=== PATIENT | female | born 1955 | race Asian ===

== ENCOUNTER 2022-09-13 10:36 | Outpatient (CLI) | payer MEDICARE, BC ==
--- NOTE | 2022-09-13 11:39 | SLEEP CARE CONSULTATION ---
Information from patient questionnaire entered by Yuli Ruffin. I have reviewed and concur with the information entered by Yuli Ruffin. This document represents the service I personally performed and the decisions made by me, Sravan Rojas MD, [facility]. History of Present Illness Service Date and Time: 09/13/2022 1036 Reason for Visit: New patient Chief Complaint: reports: Excessive daytime sleepiness, Fatigue, Frequent awakenings at night Date of Onset: YRS Usual bedtime: 11PM Time it takes to fall asleep: 0 MOST NIGHTS Snores at night: No Observed to quit breathing while asleep: No Sleeps alone due to snoring: No Number of times waking at night: 2-3 Reasons for waking at night: reports: Bathroom, Other (UNKNOWN) Toss, Turn, or Twitch while sleeping: Yes Recalls having dreams: No Usually gets out of bed at: 7AM Feels refreshed in the morning: Yes Morning headache: No Sleepy or fatigued during the day: Yes Ever fallen asleep while driving: No Takes day naps: Yes Dreams during day naps: No Prior sleep studies: Yes Year and Where: [facility] Additional HPI information: I had the pleasure of seeing Mrs. Contreras today regarding obstructive sleep ap savanah-hypopnea. As you know, she is a 67-year-old lady who was diagnosed with the sleep-disordered breathing at [facility] in [place] in 2008. The AHI was 109.0 and juan daniel oxygen saturation, 72%. She was prescribed an autobi-level device set at 20/8 cmH2O with pressure support of 4 cmH2O. She uses the ResMed AirCurve 10 every night and all night. The compliance data show usage in 90 out of the past 90 nights, averaging 8.7 hours a night. The residual AHI is 2.9 and average air leak is 5.4 L/minute. She wears a ResMed AirTouch F-20 full face mask. She gets his supplies from [employer] She finds the treatment very beneficial. She also has a new [employer] Respironics BiPAP that was sent to her as the replacement for her old machine. - Parasomnia Symptoms Ever been unable to move upon waking from sleep: No Walks in sleep: No Talks in sleep: Yes Ever acted out dreams in sleep: No Ever felt weak in the knees when startled or emotional: No Bothered by creepy, crawly, restless sensations in legs: No Problems with memory or concentration: No Subjective Initial [place] Sleepiness Scale score: 7 (09/10/22) Past Medical History Past Medical History: reports: Diabetes, Depression, GERD, Attention deficit Social History The patient's occupation is a RE. Patient is and lives in [place]. Have you smoked in the past 12 months: No Alcohol use: No Caffeine use: Yes Caffeine amount and frequency: 1 CUP PER DAY Family History Family history of sleep disordered breathing: No Allergies and Home Medications Known drug allergies: Yes (SULFA) Drug allergies reviewed: Yes Home medication list reviewed: Yes Allergy and home medication list: Allergies Sulfa (Sulfonamide Antibiotics) Allergy (Verified 09/10/22 08:36) Rash Review of Systems Weight loss over past 5 years: 40 Cardiovascular: reports: high blood pressure Respiratory: denies: shortness of breath, wheeze, sputum production, chronic cough, other Gastrointestinal: denies: heartburn, difficulty swallowing, nausea, vomitting, diarrhea, abdominal pain, other Urinary: denies: incontinence, frequency, urgency, impotence, other Neurological: denies: headaches, seizure, head trauma, disorientation, speech dysfunction, gait or balance problems, fainting or unconsciousness, other Psychiatric: reports: depression Ear/Nose/Throat: reports: sinus problems, dry mouth/throat Endocrine: reports: thyroid disease, sluggishness Musculoskeletal: denies: joint pain, neck pain, back pain, joint swelling, muscle pain or cramping, mobility problems, other Immunologic: denies: sneezing, rash, itching, allergies to food or environment, other Physical Exam Vital signs obtained and entered by: YULI Bazan MA Blood Pressure: 126/78 (LEFT ARM) Cuff size: regular Heart Rate: 88 O2 Saturation: 96 Height: 5 ft 3.25 in Weight: 197 lb 9.6 oz Body Mass Index: 34.7 BMI Classification: Obese Neck circumference: 15.25 Mood/affect: Normal HEENT: No craniofacial malformation Nostrils: patent to airflow Turbinates: normal Mouth and throat: narrow oropharynx Soft palate: long Hard palate: normal Uvula: normal Uvula visualization: 50% Mallampati Class II Tongue: normal in size Tonsils: small Chin and jaw: normal size and position Neck: normal w/o lymphadenopathy or thyromegaly Heart: regular rate and rhythm Lungs: clear bilaterally Extremities: no edema or clubbing Neurologic: intact Impression and Plan IMPRESSION: 1. Obstructive Sleep Apnea-Hypopnea Syndrome, extremely severe, as previously diagnosed. She has excellent compliance and improvement on the treatment. The current pressure setting appears effective and comfortable. Her mask fits well. No adjustment is necessary today. Plan: 1. Continue with the autobi-level therapy set at 20/6 cmH2O with pressure support of 4 cmH2O. 2. Prescription made for BiPAP supplies through [employer] 3. Try to lose weight. 4. Return for follow up in a year or earlier if there is any problem. Counseling Topics: Weight control Prescriptions: Device supplies Follow up with Sleep Care in: 1 year Visit Type: In Office Other Participants: Spouse/Significant Other Time Spent with Patient (minutes): 15 Provider Statement: I spent 100% of the Face to Face Visit with the patient with greater than 50% spent counseling the patient and coordination of care.
[2022-09-13 11:43] VITALS: BP 126/78
== END 2022-09-13 10:37 | disposition home or self-care (01) ==
LOC: SC 10:36
PROVIDERS: ATTEND Internal Medicine Pulmonary Disease
DX: G47.33 Obstructive sleep apnea (adult) (pediatric) (principal); E66.9 Obesity, unspecified; Z68.34 Body mass index [BMI] 34.0-34.9, adult
CPT/HCPCS: 99202; G0463; 99212

== ENCOUNTER 2023-09-14 10:59 | Outpatient (CLI) | payer MEDICARE, BC ==
--- NOTE | 2023-09-14 11:33 | Sleep Patient Instructions ---
Sleep Center Visit Summary - Patient Visit Information Reason for Visit: Annual follow-up - Patient Instructions Additional Instructions: You will continue with BiPAP therapy with pressure set at 20/6 cmH2O. A supply prescription will be updated with your DME. We encourage you to continue to try to lose weight. Please follow up with the sleep care office in 1 year. - Clinic Information Contact: [facility] [address] [place] [address] [email or web address] T: [phone]
--- NOTE | 2023-09-14 11:53 | SLEEP CARE CONSULTATION ---
Information from patient questionnaire entered by Yuli Ruffin. I have reviewed and concur with the information entered by Yuli Ruffin. This document represents the service I personally performed and the decisions made by me, April Pacheco ARNP. History of Present Illness Service Date and Time: 09/14/2023 1059 Previous diagnosis: Extremely Severe, Obstructive Sleep Apnea-Hypopnea Syndrome AHI: 109 (in 2008) Reason for follow up: annual (LAST SEEN 08/2022) Accompanied by: Spouse (Yoni) Equipment type: BiPAP (RESMED AirCurve 10 VAuto, set up 08/2021) Equipment obtained from: Other ([facility], getting supplies) Mask brand: Resmed (AirTouch F20, small cushion) Backup mask available: Yes Last cushion change: 1 month Prior sleep studies: Yes Year and Where: [facility] 2008 HPI additional information: KENYA PARK was diagnosed to have extremely severe, AHI 109, obstructive sleep apnea-hypopnea syndrome and returned today with spouse for BIPAP therapy annual follow-up. Sleep Study - Results Prior sleep studies: Yes Year and Where: [facility] CPAP Compliance Data - Data Reviewed with Patient Average duration of nightly device use: 7 HRS 56 MINS Compliance rate %: 99 (09/12/22-09/11/23; 364/365 days used) Current pressure setting (cmH2O): 20/6 with 4 cmH2O pressure support Average residual AHI: 2.7 Central apnea: 1.2 Obstructive apnea: 1.1 Average large leak: 5.2 L/min Subjective Missed days of use due to: reports: travel (drove thru night) Patient concerns: reports: dry mouth, nose, throat. denies: aerophagia, mask discomfort, air blowing in eyes, mask leak noise, condensation in mask/hose, nasal congestion, epistaxis Observed to snore while using device: No Current pressure setting perceived as: comfortable On therapy, patient: reports: sleeping better, awakening more refreshed, being more awake and alert during the day, more rested overall. denies: drowsiness while driving Initial [place] Sleepiness Scale score: 7 (09/10/22) Current [place] Sleepiness Scale score: 10 (09/14/23) Allergies and Home Medications Known drug allergies: Yes (as listed) Drug allergies reviewed: Yes Home medication list reviewed: Yes (as listed) Allergy and home medication list: Allergies Sulfa (Sulfonamide Antibiotics) Allergy (Verified 09/12/23 10:39) Rash Home Medications Medication Instructions Recorded Confirmed Last Taken Type Metformin HCl 500 mg PO QDBREAKFAST 12/28/13 09/14/23 Unknown History Aspirin 81 mg PO DAILY 05/08/14 09/14/23 Unknown History Citalopram [CeleXA] 35 mg PO DAILY 05/08/14 09/14/23 Unknown History Levothyroxine [Synthroid] 100 mcg PO DAILY 05/08/14 09/14/23 Unknown History Potassium Chloride 10 meq PO DAILY 05/08/14 09/14/23 Unknown History Triamterene/Hydrochlorothiazid See Rx Instructions .ROUTE .COMPLEX 05/08/14 09/14/23 Unknown History [Triamterene-Hctz 37.5-25 mg Cp] Venlafaxine [Effexor] 150 mg PO DAILY 05/08/14 09/14/23 Unknown History amLODIPine [Norvasc] 10 mg PO DAILY 05/08/14 09/14/23 Unknown History Atorvastatin Calcium See Rx Instructions .ROUTE .COMPLEX 09/10/22 09/14/23 Unknown History Exenatide Microspheres [Bydureon See Rx Instructions .ROUTE .COMPLEX 09/10/22 09/14/23 Unknown History Bcise] Glipizide [Glipizide ER] See Rx Instructions .ROUTE .COMPLEX 09/10/22 09/14/23 Unknown History Metoprolol Succinate [Toprol Xl] See Rx Instructions .ROUTE .COMPLEX 09/10/22 09/14/23 Unknown History Multivitamin See Rx Instructions .ROUTE .COMPLEX 09/10/22 09/14/23 Unknown History Omeprazole Magnesium See Rx Instructions .ROUTE .COMPLEX 09/10/22 09/14/23 Unknown History Review of Systems Review of systems same as previous: No (DIABETES) Physical Exam Vital signs obtained and entered by: YULI Bazan MA Blood Pressure: 128/71 (LEFT ARM) Cuff size: regular Heart Rate: 68 O2 Saturation: 97 Height: 5 ft 3.25 in Weight: 168 lb 9.6 oz Weight change since last visit: 29 lb loss Body Mass Index: 29.6 BMI Classification: Overweight Impression and Plan 1. Obstructive Sleep Apnea-Hypopnea Syndrome, extremely severe, with good treatment compliance and good apnea control. On BIPAP therapy, the patient has better sleep quality and is more rested overall. She has significant improvement of her sleep apnea and is satisfied with current CPAP therapy. She gets occasional oral dryness from oral venting and her fullface mask. She has no other complaints today. We will follow-up with her next year.Patient's apnea severity and rationale for treatment to reduce apnea, improve sleep quality and reduce cardiovascular and cerebrovascular events was reviewed. I also reviewed the benefit of consistent device use of BIPAP for diabetes, gastric reflux, depression, attention deficit. 2. Overweight, unspecified. Currently patients BMI is 29.6. She has lost weight since starting her new diabetic medication about a year ago. Obesity increases the risk of apnea, BIPAP pressure requirements and overall health risks especially cardiovascular and diabetes. Thus patient is advised to continue to try to lose weight. * Continue BiPAP pressure at 20/6 cmH2O with 4 cmH2O pressure support * Update supply prescription * Notify me if snoring with mask or feeling that the pressure is too much or too little * Attempt to lose weight * Call this office if any problems using BIPAP * Return for follow up in 12 months, or sooner if concerns arise Counseling Topics: Spare mask, Weight loss health impact Prescriptions: Device supplies Follow up with Sleep Care in: 1 year Visit Type: In Office Time Spent with Patient (minutes): 21 Provider Statement: I spent 100% of the Face to Face Visit with the patient with greater than 50% spent counseling the patient and coordination of care.
[2023-09-14 12:00] VITALS: BP 128/71; O2SAT 97
== END 2023-09-14 11:00 | disposition home or self-care (01) ==
LOC: SC 10:59
PROVIDERS: ATTEND Nurse Practitioner Family
DX: G47.33 Obstructive sleep apnea (adult) (pediatric) (principal); E66.3 Overweight; Z68.29 Body mass index [BMI] 29.0-29.9, adult
CPT/HCPCS: 99213; G0463; 99212